=== PATIENT | female | born 1960 | race Caucasian/White ===

== ENCOUNTER → 2023-07-12 14:27 | Outpatient (REF) | payer OTHER, SELFPAY | LOC: RAD 14:27 | PROVIDERS: ATTENDING PHYSICIAN Registered Nurse | DX: R05.1 Acute cough (principal) | CPT/HCPCS: 71046 ==

== ENCOUNTER → 2023-09-21 11:20 | Outpatient (REF) | payer OTHER, MEDICARE, SELFPAY | LOC: WDC 11:20 | PROVIDERS: ATTENDING PHYSICIAN Obstetrics & Gynecology Gynecology; FAMILY PHYSICIAN Nurse Practitioner Adult Health | DX: Z01.419 Encounter for gynecological examination (general) (routine) without abnormal findings (principal); Z12.31 Encounter for screening mammogram for malignant neoplasm of breast | CPT/HCPCS: 77063; 77067 ==

== ENCOUNTER → 2023-09-28 10:57 | Outpatient (REF) | payer MEDICARE, OTHER, SELFPAY | LOC: RCS 10:57 | PROVIDERS: ATTENDING PHYSICIAN Nurse Practitioner; FAMILY PHYSICIAN Nurse Practitioner Adult Health | DX: R06.09 Other forms of dyspnea (principal) | CPT/HCPCS: 93306 ==

== ENCOUNTER → 2024-01-26 12:15 | Outpatient (REF) | payer MEDICARE, OTHER, SELFPAY | LOC: DHCBC/DCA 12:15 | PROVIDERS: ATTENDING PHYSICIAN Nurse Practitioner; FAMILY PHYSICIAN Nurse Practitioner Adult Health | DX: R06.09 Other forms of dyspnea (principal) | CPT/HCPCS: 78452; 93017; A9500 ==

== ENCOUNTER → 2024-09-23 12:10 | Outpatient (REF) | payer MEDICARE, OTHER, SELFPAY | LOC: WDC 12:10 | PROVIDERS: ATTENDING PHYSICIAN Obstetrics & Gynecology Gynecology; FAMILY PHYSICIAN Nurse Practitioner Adult Health | DX: Z12.31 Encounter for screening mammogram for malignant neoplasm of breast (principal) | CPT/HCPCS: 77063; 77067 ==

== ENCOUNTER → 2024-11-25 15:41 | Outpatient (REF) | payer MEDICARE, OTHER, SELFPAY | LOC: RAD 15:41 | PROVIDERS: ATTENDING PHYSICIAN Internal Medicine; FAMILY PHYSICIAN Nurse Practitioner Adult Health | DX: I10 Essential (primary) hypertension (principal); Z82.49 Family history of ischemic heart disease and other diseases of the circulatory system; E78.00 Pure hypercholesterolemia, unspecified; R93.1 Abnormal findings on diagnostic imaging of heart and coronary circulation | CPT/HCPCS: 75571 ==

== ENCOUNTER 2025-01-18 15:39 | Emergency (ER) | payer MEDICARE, OTHER, SELFPAY ==
[2025-01-18 15:43] VITALS: BP 112/79
--- NOTE | 2025-01-18 17:46 | ED.MUSCINJ ---
HPI-Injury
General
Chief Complaint: Musculo-Skeletal Complaint
Source: patient
Exam Limitations: none
Time Seen by Provider: 01/18/25 17:34
Nursing documentation reviewed up to this point in time: agreed with
History of Present Illness-Injury
Is this injury a work related problem?: No
Is pt an associate of [facility]/[place]?: No
Initial Injury comments:
Patient states she was hiking with friend. Foot slipped and her leg fell between 2 rocks, twisted. Unable to get self out. SHe was removed from site by EMS, brought to ED with complaint of right knee pain. Prior trauma to this leg >20yrs ago.
Surgical intervention to leg at [facility]
Past History
Past History
ED Past Medical History: HTN, Hypercholesterolemia and Psychiatric (depression, bipolar)
ED Past Surgical History: Cholecystectomy and Other (R knee surgery)
Social History
Tobacco: Non-smoker
Personal:
Living: with family
Family History
Family History: Other (no significant history)
Review of Systems
Review of Systems
Allergies reviewed?: Yes
All Other Systems: ROS reviewed and negative except as documented in HPI and ROS
Constitutional: Reports no symptoms
EENT: Reports no symptoms
Respiratory: Reports no symptoms
Cardiac: Reports no symptoms
ABD/GI: Reports no symptoms
: Reports no symptoms
Musculoskeletal: Reports joint pain (pain to right knee)
Skin: Reports no symptoms
Neurological: Reports no symptoms
Psychiatric: Reports no symptoms
Musculoskeletal Injury Exam
Musculoskeletal Injury Exam
Right Knee:
Pain with Movement?: Moderate
Tender to palpation?: Moderate
Soft tissue swelling?: Mild
External deformity and angulation?: None
Joint effusion?: None
Contusion?: None
Strain- Sprain- Tear (Connective tissue injury)?: Moderate
Crepitus with movement?: No
Joint instability?: No
Malalignment/deformity?: No
Range of motion: Limited
Distal skin color and temperature: normal-warm & good color
Capillary Refill: normal
Normal distal neurovascular exam?: Yes
Peripheral Pulses: posterior tibial (right): 3+ and dorsalis pedis (right): 3+
Phy Exam
General Physical Exam
General Presentation: moderate distress
General age: appears stated age
General Skin: warm and dry
General Habitus: normal
General Mental: alert
Musculoskeletal Exam
Musculoskeletal Exam: neuro vasc intact and other (unable to test ligaments due to pain. Unable to bend at knee due to pain)
Skin Exam
Skin Exam: normal color, warm/dry and no rash
Psychiatric Exam
Psychiatric Exam: normal mood/affect
Injury Course
Orders/Labs/Results
Orders:
Orders
01/18/25 15:47
Knee, Right 4 or More Views [CR Knee- Right 4 Or More View*] Urgent
Comment:
Reason For Exam: s/p injury, pain
01/18/25 17:43
Crutches-Treatment ONCE
Knee Immobilizer Right-Treatme ONCE
01/18/25 17:55
Hydrocodone 5/APAP 325 [[place] 5/325] 1 tablet PO NOW STA
*Radiology
Radiology exam reviewed: radiology read reviewed
*Pulse Oximetry
SaO2: 100
Oxygen Mode of Delivery: Room air
Patient hypoxic: no
*Critical Care Note
Total Time (30-74mins, 75-104mins- exclusive of procedures): Not Applicable
Update Note
Update Note:
Patient to ED with right knee pain after leg fell betwseen 2 rocks. No fx noted on xray, no dislocation. Unable to bend at knee due to pain. Placed in knee immobilizer and will discharge home to follow [facility]w [facility]. Ice, Ibuprofen prn
ED Attending Note
-
Portions of this chart may have been created with voice recognition software.� Occasional wrong word or��sound alike� substitutions may have occurred due to the inherent limitations of voice recognition software.
Discharge Plan
Departure
Patient Disposition: Home (Routine Discharge)
Date of Disposition: 01/18/25
Time of Disposition: 17:45
Patient with high blood pressure during this ER visit?: No
Condition: Good
Covid-19: Not Applicable
Discharge Problem:
Sprain of knee
Instructions: How to Use Crutches, Knee Immobilizer (DC), Knee Sprain (DC), Ibuprofen, Using Cold for Pain
Prescriptions:
New
hydrocodone-acetaminophen 5-325 mg tablet
1 tab PO Q4H PRN (Reason: Pain) Qty: 12 0RF
No Action
atorvastatin 40 mg Tablet
40 mg PO DAILY
lamotrigine 200 mg Tablet
200 mg PO DAILY
dextroamphetamine-amphetamine 10 mg tablet
10 mg PO BID
Patient Comments:
04/07/2022: last filled 03/07/22, 60 tabs for 30 days from [facility]
valacyclovir [Valtrex] 500 mg Tablet
500 mg PO DAILY
ziprasidone HCl 20 mg capsule
20 mg PO BID
valsartan 320 mg Tablet
160 mg PO DAILY
diazepam 5 mg tablet
5 mg PO BID PRN (Reason: anxiety)
Patient Comments:
04/07/2022: last filled 04/01/22, 60 tabs for 30 days from [facility]
zolpidem 12.5 mg tablet,ext release multiphase
12.5 mg PO HS PRN (Reason: sleep)
Patient Comments:
04/07/2022: last filled 03/29/22, 30 tabs for 30 days from [facility]
lubiprostone [Amitiza] 24 mcg capsule
24 mcg PO BID
Motegrity 2 mg Tablet
2 mg PO DAILY
metoclopramide HCl [Reglan] 10 mg tablet
10 mg PO Q8HPRN PRN (Reason: nausea and vomiting) Qty: 9 0RF
Referrals:
Radha Patrick I., DO [Active, Orthopedics] - Call in 1-3 days for appt
Alysha Hazel CRNP [Family Provider, General]
Interventions
Interventions:
*Risk Screen - Suicide Last Done: 01/18/25 15:45
*General Assessment Last Done: 01/18/25 15:45
*Neglect/Abuse Screening Last Done: 01/18/25 18:30
*ED- Fall Risk Assessment Last Done: 01/18/25 18:30
*ED COVID-19 Vaccine History Last Done: 01/18/25 15:45
*ED Influenza Vaccine History Last Done: 01/18/25 15:45
*Nursing Disposition Last Done: 01/18/25 18:30
ED-Musculoskeletal Assessment Last Done: 01/18/25 16:46
Discharge Date and Time
Discharge Date/Time: 01/18/25 18:30
Print Language: CYMRAES
[2025-01-18] MEDS: NORCO 5/325 1 TABLET PO (18:03)
== END 2025-01-18 18:30 | disposition home or self-care (01) ==
LOC: EMR 15:39
PROVIDERS: EMERGENCY PHYSICIAN Emergency Medicine; FAMILY PHYSICIAN Nurse Practitioner Adult Health
DX: S83.90XA Sprain of unspecified site of unspecified knee, initial encounter (principal); W01.0XXA Fall on same level from slipping, tripping and stumbling without subsequent striking against object, initial encounter; Y93.01 Activity, walking, marching and hiking; I10 Essential (primary) hypertension; E78.00 Pure hypercholesterolemia, unspecified; F31.9 Bipolar disorder, unspecified; Z90.49 Acquired absence of other specified parts of digestive tract
CPT/HCPCS: 99283; 73564

== ENCOUNTER → 2025-02-10 13:17 | Outpatient (REF) | payer MEDICARE, OTHER, SELFPAY | LOC: RAD 13:17 | PROVIDERS: ATTENDING PHYSICIAN Nurse Practitioner Family; FAMILY PHYSICIAN Nurse Practitioner Adult Health | DX: D35.02 Benign neoplasm of left adrenal gland (principal) | CPT/HCPCS: 74170; Q9967 ==

== ENCOUNTER → 2025-03-19 14:45 | Outpatient (REF) | payer MEDICARE, OTHER, SELFPAY | LOC: RAD 14:45 | PROVIDERS: ATTENDING PHYSICIAN Nurse Practitioner Adult Health | DX: Z78.0 Asymptomatic menopausal state (principal) | CPT/HCPCS: 77080 ==